=== PATIENT | female | born 1970 | race Caucasian/White ===

== ENCOUNTER 2017-07-24 12:54 | Emergency (ER) | payer MEDICAID ==
[~2017-07-24 12:54] MED LIST: FLUO40CA9 PO; LORA-445 PO
== END 2017-07-24 14:51 | disposition left against medical advice (07) ==
LOC: ED 14:15
DX: M79.89 Other specified soft tissue disorders (principal); Z53.21 Procedure and treatment not carried out due to patient leaving prior to being seen by health care provider

== ENCOUNTER 2018-04-07 13:46 | Emergency (ER) | payer MEDICAID ==
[~2018-04-07] VITALS: Ht 157.5 cm; Wt 78.1 kg
[2018-04-07 13:58] VITALS: BP 166/106
[2018-04-07] MEDS ORDERED: SODIUM CHLORIDE FLUSH 10ML SYR IVF ONE (14:30)
[2018-04-07] MEDS ORDERED: ASPIRIN 81 MG TABLET CHEW PO ONE (14:30)
[2018-04-07 14:48] LABS: BASOPHILS # (AUTO) 0.03 x10^3/uL (0-0.1); BASOPHILS % (AUTO) 0 % (0-1); EOSINOPHILS % (AUTO) 0 % (1-7); LYMPHOCYTES # (AUTO) 1.54 x10^3/uL (1-3.4); LYMPHOCYTES % (AUTO) 11 % (22-44); MD NO; MEAN CORPUSCULAR HEMOGLOBIN 32.6 pg (27.0-34.8); MEAN CORPUSCULAR HGB CONC 32.8 g/dL (32.4-35.8); MEAN CORPUSCULAR VOLUME 99.4 fL (80-100); MONOCYTES # (AUTO) 0.47 x10^3/uL (0.2-0.8); MONOCYTES % (AUTO) 4 % (2-9); NEUTROPHILS % (AUTO) 85 % (42-75); PLATELET COUNT 250 x10^3/uL (130-400); RED BLOOD COUNT 5.05 x10^6/uL (3.82-5.3)
[2018-04-07 14:56] LABS: ALBUMIN 4.1 g/dL (3.4-5.0); ANION GAP 8 mmol/L (5-15); CALCIUM 9.7 mg/dL (8.5-10.1); CHLORIDE 98 mmol/L (98-107); CREATININE 0.93 mg/dL (0.55-1.02)
[2018-04-07 15:00] LABS: TROPONIN I < 0.015 ng/mL (0.000-0.045)
[2018-04-07] MEDS ORDERED: ASPIRIN 81 MG TABLET CHEW ONE (15:21)
== END 2018-04-07 16:09 | disposition home or self-care (01) ==
LOC: ED 15:55
DX: M94.0 Chondrocostal junction syndrome [Tietze] (principal); J20.9 Acute bronchitis, unspecified
CPT/HCPCS: 36415; 71045; 80048; 82040; 83880; 84484; 85025; 93005; 99285

== ENCOUNTER 2018-06-16 07:48 | Inpatient (IN) | payer MEDICAID ==
[~2018-06-16] VITALS: Ht 157.5 cm; Wt 74.9 kg
[2018-06-16] MEDS ORDERED: CLON0.5T11 PO ×2 (08:11→14:38)
[2018-06-16] MEDS ORDERED: GABAPENTIN (08:12)
[2018-06-16] MEDS ORDERED: PANTOPRAZOLE 80 MG in SODIUM CHLORIDE 0.9% 50 ML IVPB ONE (08:30)
[2018-06-16] MEDS ORDERED: OCTREOTIDE 100MCG/ML, 1ML (0.1MG/ML) IV ONE (08:30)
[2018-06-16] MEDS ORDERED: LISINOPRIL (08:40)
[2018-06-16 08:41] LABS: BASOPHILS # (AUTO) 0.05 x10^3/uL (0-0.1); BASOPHILS % (AUTO) 1 % (0-1); EOSINOPHILS # (AUTO) 0.01 x10^3/uL (0-0.4); EOSINOPHILS % (AUTO) 0 % (1-7); LYMPHOCYTES # (AUTO) 1.56 x10^3/uL (1-3.4); LYMPHOCYTES % (AUTO) 14 % (22-44); MD NO; MEAN CORPUSCULAR HEMOGLOBIN 32.9 pg (27.0-34.8); MEAN CORPUSCULAR HGB CONC 33.3 g/dL (32.4-35.8); MEAN CORPUSCULAR VOLUME 98.9 fL (80-100); MEAN PLATELET VOLUME 6.8 fL (7.4-10.4); MONOCYTES # (AUTO) 0.27 x10^3/uL (0.2-0.8); MONOCYTES % (AUTO) 3 % (2-9); NEUTROPHILS # (AUTO) 8.92 x10^3/uL (1.8-6.8); NEUTROPHILS % (AUTO) 83 % (42-75); PLATELET COUNT 434 x10^3/uL (130-400); RED BLOOD COUNT 4.75 x10^6/uL (3.82-5.3); RED CELL DISTRIBUTION WIDTH 13.2 % (9.6-15.2)
--- NOTE | 2018-06-16 08:44 | NUR ---
PT C/O BLOODY VOMITUS X1 THIS AM. STATES SHE STARTED DRINKING ETOH RECENTLY AFTER ABSTAINING FOR 3 MONTHS. PT STATES SHE HAS NEVER HAD UPPER GI BLEEDING BEFORE, AND DOES NOT NOTE ANY DARK STOOLS. IV ACCESS OBTAINED, VSS AT THIS TIME.
[2018-06-16 08:53] LABS: CHLORIDE 95 mmol/L (98-107)
[2018-06-16 08:54] LABS: ALANINE AMINOTRANSFERASE 100 U/L (12-78); ALBUMIN 4.4 g/dL (3.4-5.0); ANION GAP 16 mmol/L (5-15); CALCIUM 8.2 mg/dL (8.5-10.1); CREATININE 1.19 mg/dL (0.55-1.02)
[2018-06-16 08:55] LABS: ALKALINE PHOSPHATASE 96 U/L (45-117); BILIRUBIN,TOTAL 0.6 mg/dL (0.2-1.0); INTERNATIONAL NORMALIZED RATIO 1.1 (0.93-1.1); PROTHROMBIN TIME 11.6 Seconds (9.6-11.5); TOTAL PROTEIN 8.4 g/dL (6.4-8.2)
[2018-06-16] MEDS ORDERED: PANTOPRAZOLE 80 MG in SODIUM CHLORIDE 0.9% 100 ML IV SCH ×2 (09:00→11:30)
[2018-06-16] MEDS ORDERED: OCTREOTIDE 500 MCG in SODIUM CHLORIDE 0.9% 249 ML IV PRN (09:00)
--- NOTE | 2018-06-16 09:34 | NUR ---
paged dr hess for dr bolton
--- NOTE | 2018-06-16 09:42 | NUR ---
IV MEDS ARE INFUSING, PT IS RESTING ON GURNEY, CALM AND COOPERATIVE, CALL LIGHT IS WITHIN REACH.
--- NOTE | 2018-06-16 10:03 | NUR ---
404-1 AFTER EGD IN ED.
--- NOTE | 2018-06-16 10:25 | NUR ---
ADMITTING PROVIDER IS WITH PT. WILL COMPLETE EKG PRIOR TO EGD. CALLED REPORT TO MELO DENNIS FOR ROOM 404-1.
--- NOTE | 2018-06-16 10:27 | NUR ---
KAUSHIK PUENTES SPOKE WITH PT ABOUT EGD PROCEDURE DID GI MD.
[2018-06-16] MEDS ORDERED: KETAMINE 100 MG/ML, 5ML IV ONE (10:30)
[2018-06-16] MEDS ORDERED: PROPOFOL 10 MG/ML, 20ML IVPush ONE (10:30)
[2018-06-16] MEDS ORDERED: OCTREOTIDE 100MCG/ML, 1ML (0.1MG/ML) ONE (10:45)
[2018-06-16] MEDS ORDERED: SODIUM CHLORIDE 0.9% 1,000ML IVBOLUS ONE (11:00)
--- NOTE | 2018-06-16 11:04 | NUR ---
PT MOVED TO TRAUMA 2 FOR EGD. ALL BELONGINGS WITH PT. IV NS AT BOLUS RATE PER DR. VASQUEZ. REPORT TO FEDERICO DENNIS.
[2018-06-16] MEDS ORDERED: PROPOFOL 10 MG/ML, 20ML ONE (11:15)
[2018-06-16] MEDS ORDERED: KETAMINE 50 MG/ML, 10ML ONE (11:16)
[2018-06-16] MEDS ORDERED: KETAMINE 10 MG/ML, 20ML ONE (11:19)
[2018-06-16] MEDS ORDERED: ACETAMINOPHEN 325 MG TABLET PO PRN (11:30)
[2018-06-16] MEDS ORDERED: PHARMACY MAY ADJ FOR RENAL FX MC PRN (11:30)
[2018-06-16] MEDS ORDERED: LORazepam 2 MG/ML, 1ML IV PRN ×2 (11:30)
[2018-06-16] MEDS ORDERED: ONDANSETRON 2MG/ML, 2ML IVPush PRN (11:30)
[2018-06-16] MEDS ORDERED: DOCUSATE 100 MG CAPSULE PO PRN (11:30)
[2018-06-16 13:17] VITALS: BP 124/82
[2018-06-16] MEDS: LORazepam 2 MG/ML, 1ML IV PRN ×4 (13:32→23:15)
[2018-06-16 13:50] VITALS: BP 124/82
[2018-06-16] MEDS ORDERED: DOXE10CA PO (14:38)
[2018-06-16] MEDS ORDERED: NALT50TA PO (14:38)
[2018-06-16] MEDS ORDERED: TRAM50TA2 PO (14:38)
[2018-06-16] MEDS ORDERED: FLUT1AER INH (14:38)
[2018-06-16] MEDS ORDERED: GABA600T2 PO (14:38)
[2018-06-16] MEDS: SODIUM CHLORIDE 0.9% 1,000 ML IV SCH ×2 (16:24→18:25)
[2018-06-16] MEDS: SUCRALFATE 1 GM/10 ML UDC PO SCH ×2 (16:45→20:35)
[2018-06-16 19:10] VITALS: BP 118/78
[2018-06-16] MEDS: MAGNESIUM SULFATE 1 GM, MVI ADULT 10 ML, THIAMINE 200 MG, FOLIC ACID 1 MG in SODIUM CHL... IV SCH (20:35)
[2018-06-16] MEDS: OMEPRAZOLE 20 MG CAPSULE.DR PO SCH (20:35)
[2018-06-17 01:30] VITALS: BP 122/84
[2018-06-17] MEDS: LORazepam 2 MG/ML, 1ML IV PRN ×2 (03:05→11:39)
[2018-06-17] MEDS: OMEPRAZOLE 20 MG CAPSULE.DR PO SCH ×2 (05:26→20:12)
[2018-06-17 05:59] LABS: BASOPHILS # (AUTO) 0.03 x10^3/uL (0-0.1); BASOPHILS % (AUTO) 1 % (0-1); EOSINOPHILS # (AUTO) 0.03 x10^3/uL (0-0.4); EOSINOPHILS % (AUTO) 1 % (1-7); LYMPHOCYTES % (AUTO) 32 % (22-44); MD NO; MEAN CORPUSCULAR HEMOGLOBIN 33.4 pg (27.0-34.8); MEAN CORPUSCULAR HGB CONC 33.7 g/dL (32.4-35.8); MEAN CORPUSCULAR VOLUME 99.1 fL (80-100); MEAN PLATELET VOLUME 7.1 fL (7.4-10.4); MONOCYTES # (AUTO) 0.47 x10^3/uL (0.2-0.8); MONOCYTES % (AUTO) 7 % (2-9); NEUTROPHILS # (AUTO) 4.03 x10^3/uL (1.8-6.8); NEUTROPHILS % (AUTO) 60 % (42-75); PLATELET COUNT 269 x10^3/uL (130-400); RED BLOOD COUNT 3.96 x10^6/uL (3.82-5.3); RED CELL DISTRIBUTION WIDTH 13.2 % (9.6-15.2)
[2018-06-17] MEDS: SODIUM CHLORIDE 0.9% 1,000 ML IV SCH ×2 (06:00→14:54)
[2018-06-17 06:12] LABS: CHLORIDE 100 mmol/L (98-107)
[2018-06-17 06:28] LABS: ALANINE AMINOTRANSFERASE 65 U/L (12-78); ALBUMIN 3.5 g/dL (3.4-5.0); ALKALINE PHOSPHATASE 77 U/L (45-117); ANION GAP 9 mmol/L (5-15); CREATININE 0.78 mg/dL (0.55-1.02); TOTAL PROTEIN 6.7 g/dL (6.4-8.2)
[2018-06-17 07:23] VITALS: BP 126/79
[2018-06-17] MEDS: FLUOXETINE HCL 20 MG CAPSULE PO SCH (09:20)
[2018-06-17] MEDS: SUCRALFATE 1 GM/10 ML UDC PO SCH ×4 (09:20→20:16)
[2018-06-17] MEDS ORDERED: OMEP-110 PO (11:19)
[2018-06-17] MEDS ORDERED: SUCR1ORA5 PO (11:19)
[2018-06-17] MEDS ORDERED: FOLI-17 PO (11:19)
[2018-06-17] MEDS ORDERED: THIA100T67 PO (11:19)
[2018-06-17] MEDS ORDERED: ACET325T14 PO (11:19)
[2018-06-17] MEDS: CHLORDIAZEPOXIDE 10 MG CAPSULE PO SCH ×3 (12:16→20:12)
[2018-06-17] MEDS: MAGNESIUM SULFATE 1 GM, MVI ADULT 10 ML, THIAMINE 200 MG, FOLIC ACID 1 MG in SODIUM CHL... IV SCH (12:17)
[2018-06-17 14:05] VITALS: BP 122/71
[2018-06-17] MEDS ORDERED: LORazepam 1MG TABLET PO PRN ×3 (16:00)
[2018-06-17] MEDS ORDERED: LORazepam 0.5MG TABLET PO PRN (16:00)
[2018-06-17] MEDS ORDERED: MVI ADULT IV SCH (17:00)
[2018-06-17] MEDS ORDERED: MAGNESIUM SULFATE IV SCH (17:00)
[2018-06-17] MEDS ORDERED: FOLIC ACID IV SCH (17:00)
[2018-06-17] MEDS ORDERED: [UNRECOGNIZED DRUG - OTHER] IV SCH (17:00)
[2018-06-17] MEDS ORDERED: THIAMINE IV SCH (17:00)
[2018-06-17 19:04] VITALS: BP 135/85
[2018-06-18 01:20] VITALS: BP 143/87
[2018-06-18] MEDS: OMEPRAZOLE 20 MG CAPSULE.DR PO SCH (05:23)
[2018-06-18] MEDS: CHLORDIAZEPOXIDE 10 MG CAPSULE PO SCH (05:24)
[2018-06-18] MEDS ORDERED: MAGNESIUM SULFATE IV SCH (07:00)
[2018-06-18] MEDS ORDERED: MVI ADULT IV SCH (07:00)
[2018-06-18] MEDS ORDERED: THIAMINE IV SCH (07:00)
[2018-06-18] MEDS ORDERED: FOLIC ACID IV SCH (07:00)
[2018-06-18] MEDS ORDERED: [UNRECOGNIZED DRUG - OTHER] IV SCH (07:00)
[2018-06-18] MEDS: FLUOXETINE HCL 20 MG CAPSULE PO SCH (07:32)
[2018-06-18] MEDS: SUCRALFATE 1 GM/10 ML UDC PO SCH (07:32)
[2018-06-18 08:17] VITALS: BP 139/83
[2018-06-18] MEDS ORDERED: SODIUM CHLORIDE 0.9% 1,000 ML IV SCH (11:03)
== END 2018-06-18 11:45 | disposition home or self-care (01) | DRG 381 ==
LOC: ED 08:43 → EDIP 09:39 → 4WST 13:15 → DCLOUNGE 06-18 11:20
PROVIDERS: ADMIT Hospitalist; ATTEND Hospitalist
PROC: 0DB68ZX Excision of Stomach, Via Natural or Artificial Opening Endoscopic, Diagnostic (ICD-10-PCS; principal; 2018-06-16 11:15)
DX: K22.11 Ulcer of esophagus with bleeding (principal); E87.1 Hypo-osmolality and hyponatremia; E87.2 Acidosis; D72.829 Elevated white blood cell count, unspecified; E66.9 Obesity, unspecified; F10.20 Alcohol dependence, uncomplicated; F32.9 Major depressive disorder, single episode, unspecified; F41.9 Anxiety disorder, unspecified; G89.29 Other chronic pain; I10 Essential (primary) hypertension; J45.909 Unspecified asthma, uncomplicated; K21.9 Gastro-esophageal reflux disease without esophagitis; K29.70 Gastritis, unspecified, without bleeding; K29.80 Duodenitis without bleeding; K70.10 Alcoholic hepatitis without ascites; Z68.30 Body mass index [BMI] 30.0-30.9, adult
CPT/HCPCS: 36415; 80053; 83690; 85014; 85018; 85025; 85610; 85730; 86850; 86900; 88305; 93005; 96374; 99285; G0378; J2354; J2405; J3411; J3475; C9113; J2060; J7030; J7050

== ENCOUNTER 2018-08-26 23:03 | Emergency (ER) | payer MEDICAID ==
[~2018-08-26] VITALS: Ht 157.5 cm; Wt 66.6 kg
[~2018-08-26 23:03] MED LIST changes: +ACET325T14 PO; +CLON0.5T11 PO; +DOXE10CA PO; +FLUT1AER INH; +FOLI-17 PO; +GABA600T7 PO; +GABAPENTIN; +LISINOPRIL; +NALT50TA PO; +OMEP-110 PO; +SUCR1ORA5 PO; +THIA100T67 PO; +TRAM50TA2 PO
[2018-08-26] MEDS ORDERED: FAMOTIDINE 20 MG/2 ML IVP ONE (23:30)
[2018-08-26] MEDS ORDERED: ONDANSETRON 2MG/ML, 2ML IVPush ONE (23:30)
[2018-08-26 23:56] LABS: BASOPHILS # (AUTO) 0.02 x10^3/uL (0-0.1); BASOPHILS % (AUTO) 0 % (0-1); EOSINOPHILS # (AUTO) 0.01 x10^3/uL (0-0.4); EOSINOPHILS % (AUTO) 0 % (1-7); LYMPHOCYTES # (AUTO) 1.03 x10^3/uL (1-3.4); LYMPHOCYTES % (AUTO) 18 % (22-44); MD NO; MEAN CORPUSCULAR HEMOGLOBIN 32.1 pg (27.0-34.8); MEAN CORPUSCULAR VOLUME 94.4 fL (80-100); MEAN PLATELET VOLUME 6.6 fL (7.4-10.4); MONOCYTES # (AUTO) 0.52 x10^3/uL (0.2-0.8); MONOCYTES % (AUTO) 9 % (2-9); NEUTROPHILS # (AUTO) 4.06 x10^3/uL (1.8-6.8); NEUTROPHILS % (AUTO) 72 % (42-75); PLATELET COUNT 270 x10^3/uL (130-400); RED BLOOD COUNT 4.65 x10^6/uL (3.82-5.3); RED CELL DISTRIBUTION WIDTH 15.4 % (9.6-15.2)
[2018-08-26] MEDS ORDERED: ONDANSETRON 2MG/ML, 2ML ONE (23:59)
[2018-08-26] MEDS ORDERED: FAMOTIDINE 20 MG/2 ML ONE (23:59)
[2018-08-27 00:07] LABS: ALANINE AMINOTRANSFERASE 80 U/L (12-78); ALBUMIN 4.6 g/dL (3.4-5.0); ANION GAP 14 mmol/L (5-15); CALCIUM 9.7 mg/dL (8.5-10.1); CHLORIDE 99 mmol/L (98-107); CREATININE 0.78 mg/dL (0.55-1.02)
[2018-08-27 00:09] LABS: ALKALINE PHOSPHATASE 72 U/L (45-117); BILIRUBIN,TOTAL 1.5 mg/dL (0.2-1.0)
--- NOTE | 2018-08-27 00:09 | NUR ---
PT HERE FOR DETOX SYMPTOMS WITH GAGGING AND UNABLE TO KEEP FOOD DOWN. PT IS HAS A TREMOR. VSS. PIV PLACED AND PT MEDICATED. PT TO CT.
[2018-08-27] MEDS ORDERED: LORazepam 2 MG/ML, 1ML IVPush ONE (00:30)
[2018-08-27] MEDS ORDERED: LORazepam 2 MG/ML, 1ML ONE (00:34)
--- NOTE | 2018-08-27 00:38 | NUR ---
MARC RN: PT SHAKING. PT REPORTS ANXIETY. PT GIVEN ATIVAN PER DR VALLADARES. VS STABLE AT THIS TIME. NO ACUTE DISTRESS NOTED. WILL CONTINUE TO MONITOR.
--- NOTE | 2018-08-27 00:50 | NUR ---
REPORT GIVEN TO JEANNIE BLAS
--- NOTE | 2018-08-27 01:31 | NUR ---
Patient given discharge instructions and they have confirmed that they understand the instructions. Patient ambulatory with steady gait.
[2018-08-27 01:32] VITALS: BP 155/94
== END 2018-08-27 01:33 | disposition home or self-care (01) ==
LOC: ED 08-27 00:27
DX: F10.239 Alcohol dependence with withdrawal, unspecified (principal); R11.2 Nausea with vomiting, unspecified; F41.9 Anxiety disorder, unspecified; Z72.9 Problem related to lifestyle, unspecified; I10 Essential (primary) hypertension
CPT/HCPCS: 36415; 70450; 80053; 80307; 83690; 85025; 96374; 96375; 99284; J2060; J2405; J3490

== ENCOUNTER 2020-10-10 08:17 | Inpatient (IN) | payer MEDICAID ==
[~2020-10-10] VITALS: Ht 157.5 cm; Wt 85.9 kg
[~2020-10-10 08:17] MED LIST changes: +CLON-364 PO; -CLON0.5T11 PO; -FOLI-17 PO; +FOLI1TAB32 PO
[2020-10-10] MEDS ORDERED: LORazepam 2 MG/ML, 1ML ONE ×2 (08:52→09:05)
[2020-10-10] MEDS: LORazepam 2 MG/ML, 1ML IVPush PRN ×2 (08:54→09:07)
[2020-10-10] MEDS ORDERED: SODIUM CHLORIDE FLUSH 10ML SYR IVF ONE (09:00)
--- NOTE | 2020-10-10 09:10 | NUR ---
Pt with a hx of ETOH and withdrawls. Last drink yesterday with intention to stop drinking. Pt presents shaking and anxious. Pt also c/o right side abd pain that started at her "overy and has worked it's way up. I'm worried it's my liver." Pain comes and goes and started about 1 month ago. Pt connected to all monitors. DHAVAL Desir and Law to bedside for evals.
[2020-10-10 09:15] LABS: INTERNATIONAL NORMALIZED RATIO 1.25 (0.93-1.1); PROTHROMBIN TIME 13.3 Seconds (9.6-11.5)
[2020-10-10 09:16] LABS: BASOPHILS % (AUTO) 0 % (0-1); EOSINOPHILS % (AUTO) 0 % (1-7); LYMPHOCYTES % (AUTO) 15 % (22-44); MEAN CORPUSCULAR HEMOGLOBIN 34.5 pg (27.0-34.8); MEAN CORPUSCULAR HGB CONC 33.1 g/dL (32.4-35.8); MEAN PLATELET VOLUME 7.4 fL (7.4-10.4); MONOCYTES % (AUTO) 8 % (2-9); NEUTROPHILS % (AUTO) 76 % (42-75); PLATELET COUNT 222 x10^3/uL (130-400); RED BLOOD COUNT 3.93 x10^6/uL (3.82-5.3); RED CELL DISTRIBUTION WIDTH 15.3 % (9.6-15.2)
[2020-10-10 09:17] LABS: ALBUMIN 3.5 g/dL (3.4-5.0); ANION GAP 9 mmol/L (5-15); CALCIUM 8.5 mg/dL (8.5-10.1); CHLORIDE 100 mmol/L (98-107)
[2020-10-10 09:22] LABS: MD NO
[2020-10-10 09:23] LABS: ALANINE AMINOTRANSFERASE 93 U/L (12-78); ALKALINE PHOSPHATASE 224 U/L (45-117); BILIRUBIN,TOTAL 2.8 mg/dL (0.2-1.0); CREATININE 0.71 mg/dL (0.55-1.02); TOTAL PROTEIN 8.5 g/dL (6.4-8.2)
[2020-10-10] MEDS ORDERED: PANTOPRAZOLE 40 MG IV ONE (09:30)
[2020-10-10] MEDS ORDERED: PANTOPRAZOLE 40 MG IV IVPush ONE (09:30)
[2020-10-10] MEDS ORDERED: SODIUM CHLORIDE 0.9% 1,000ML IVBOLUS ONE (09:30)
--- NOTE | 2020-10-10 10:16 | NUR ---
BREAK RN. U/S COMPLETED, AWAITING RESULTS. PT REMAINS ON MONITORS, VSS. CALL LIGHT IN REACH, CONT TO MONITOR.
--- NOTE | 2020-10-10 10:30 | NUR ---
Pt up to bathroom for UA.
--- NOTE | 2020-10-10 10:36 | NUR ---
Pt states she unable to urinate at this time.
[2020-10-10] MEDS ORDERED: LISI-170 PO (10:42)
[2020-10-10] MEDS ORDERED: NALT50TA PO (10:44)
[2020-10-10] MEDS ORDERED: FLUO10CA13 PO (10:44)
--- NOTE | 2020-10-10 10:45 | NUR ---
Med rec done to best of pt's ability.
[2020-10-10] MEDS ORDERED: CHLORDIAZEPOXIDE 10 MG CAPSULE PO PRN (11:00)
[2020-10-10] MEDS ORDERED: CHLORDIAZEPOXIDE 10 MG CAPSULE ONE (11:03)
[2020-10-10] MEDS ORDERED: CHOLECALCIFEROL 5,000u TAB PO SCH (11:30)
[2020-10-10] MEDS ORDERED: ONDANSETRON ODT 4 MG PO PRN (11:30)
[2020-10-10] MEDS ORDERED: BACLOFEN 10 MG TABLET PO PRN (11:30)
[2020-10-10] MEDS ORDERED: LORazepam 2 MG/ML, 1ML IVPush PRN (11:30)
[2020-10-10] MEDS ORDERED: GUAIFENESIN/DM 200-20MG, 10ML UDC PO PRN (11:30)
[2020-10-10] MEDS ORDERED: LACTATED RINGERS 1,000 ML IV ONE (11:30)
[2020-10-10] MEDS ORDERED: HYDROmorphone 2 MG/ML, 1ML IVPush PRN (11:30)
[2020-10-10] MEDS ORDERED: ONDANSETRON 2MG/ML, 2ML IVPush PRN (11:30)
[2020-10-10] MEDS: GABAPENTIN 300 MG CAPSULE PO SCH ×2 (13:48→20:27)
[2020-10-10] MEDS: ZINC SULFATE 220 MG CAPSULE PO SCH (13:49)
[2020-10-10] MEDS: MULTIVITS,STRESS FORMULA 1 TABLET PO SCH (13:49)
[2020-10-10 14:34] VITALS: BP 154/99
[2020-10-10] MEDS ORDERED: CYANOCOBALAMIN 1,000 MCG/ML, 1ML IM ONE (16:00)
[2020-10-10] MEDS: HYDROcodone/APAP 5/325 TABLET PO PRN ×2 (16:00→20:27)
[2020-10-10 16:53] LABS: % IRON SATURATION 85 % (20-55); IRON LEVEL 158 mcg/dL (50-170); TOTAL IRON BINDING CAPACITY 186 mcg/dL (250-450)
[2020-10-10] MEDS ORDERED: ASCORBIC ACID 500 MG TABLET PO SCH (17:00)
[2020-10-10] MEDS: ASCORBIC ACID 500 MG TABLET PO SCH (17:32)
[2020-10-10] MEDS: DIAZEPAM 10 MG TABLET PO SCH ×2 (17:32→22:09)
[2020-10-10] MEDS: ENOXAPARIN 30 MG/0.3 ML SQ SCH (17:37)
[2020-10-10 20:00] VITALS: BP 127/85
[2020-10-10] MEDS: MELATONIN 5 MG TABLET PO SCH (20:26)
[2020-10-10 22:47] LABS: HCG UR SG 1.039 (1.003-1.030)
[2020-10-10 22:52] LABS: AMPHETAMINE SCREEN, URINE Negative (Negative); BARBITURATE SCREEN, URINE Negative (Negative); BENZODIAZEPINE SCREEN, URINE Positive (Negative); CANNABINOID SCREEN, URINE Negative (Negative); COCAINE SCREEN, URINE Negative (Negative); METHADONE SCREEN, URINE Negative (Negative); OPIATE SCREEN, URINE Positive (Negative)
[2020-10-10 22:53] LABS: MICROSCOPIC INDICATED
[2020-10-11 01:33] VITALS: BP 119/78
[2020-10-11] MEDS: DIAZEPAM 10 MG TABLET PO SCH ×4 (04:04→22:33)
[2020-10-11 07:11] VITALS: BP 127/81
[2020-10-11] MEDS ORDERED: CHOLECALCIFEROL 5,000u TAB PO SCH (09:00)
[2020-10-11] MEDS: MULTIVITS,STRESS FORMULA 1 TABLET PO SCH ×2 (09:00→10:10)
[2020-10-11] MEDS ORDERED: ZINC SULFATE 220 MG CAPSULE PO SCH (09:00)
[2020-10-11] MEDS: ENOXAPARIN 30 MG/0.3 ML SQ SCH ×2 (09:00→20:55)
[2020-10-11] MEDS: SENNA/DOCUSATE TABLET PO SCH (09:00)
[2020-10-11 09:53] LABS: BASOPHILS % (AUTO) 1 % (0-1); EOSINOPHILS % (AUTO) 1 % (1-7); LYMPHOCYTES % (AUTO) 29 % (22-44); MEAN CORPUSCULAR HEMOGLOBIN 34.6 pg (27.0-34.8); MEAN CORPUSCULAR HGB CONC 33.3 g/dL (32.4-35.8); MEAN PLATELET VOLUME 7.4 fL (7.4-10.4); MONOCYTES % (AUTO) 9 % (2-9); NEUTROPHILS % (AUTO) 61 % (42-75); PLATELET COUNT 184 x10^3/uL (130-400); RED BLOOD COUNT 3.65 x10^6/uL (3.82-5.3); RED CELL DISTRIBUTION WIDTH 15.1 % (9.6-15.2)
[2020-10-11 09:54] LABS: MD NO
[2020-10-11 10:01] LABS: ANION GAP 6 mmol/L (5-15); CALCIUM 8.4 mg/dL (8.5-10.1); CHLORIDE 102 mmol/L (98-107)
[2020-10-11 10:03] LABS: ALANINE AMINOTRANSFERASE 77 U/L (12-78); ALKALINE PHOSPHATASE 172 U/L (45-117); BILIRUBIN,TOTAL 2.9 mg/dL (0.2-1.0); TOTAL PROTEIN 7.2 g/dL (6.4-8.2)
[2020-10-11] MEDS: ASCORBIC ACID 500 MG TABLET PO SCH ×2 (10:10→17:31)
[2020-10-11] MEDS: ZINC SULFATE 220 MG CAPSULE PO SCH (10:10)
[2020-10-11] MEDS: GABAPENTIN 300 MG CAPSULE PO SCH ×2 (10:10→20:50)
[2020-10-11] MEDS: CHOLECALCIFEROL 5,000u TAB PO SCH (10:11)
[2020-10-11 13:10] VITALS: BP 120/80
[2020-10-11] MEDS ORDERED: GADOTERATE 10 MMOL/20 ML VIAL ONE (18:23)
[2020-10-11 19:04] VITALS: BP 134/84
[2020-10-11] MEDS: HYDROcodone/APAP 5/325 TABLET PO PRN (19:10)
[2020-10-11] MEDS: MELATONIN 5 MG TABLET PO SCH (20:50)
[2020-10-12 01:58] VITALS: BP 98/62
[2020-10-12] MEDS: DIAZEPAM 10 MG TABLET PO SCH (03:57)
[2020-10-12] MEDS ORDERED: CHLORDIAZEPOXIDE 10 MG CAPSULE PO PRN (07:00)
[2020-10-12] MEDS ORDERED: LORazepam 2 MG/ML, 1ML IV PRN ×6 (07:00)
[2020-10-12] MEDS ORDERED: CHLORDIAZEPOXIDE 25 MG CAPSULE PO PRN ×3 (07:00)
[2020-10-12] MEDS ORDERED: LORazepam 0.5MG TABLET PO PRN (07:00)
[2020-10-12] MEDS ORDERED: LORazepam 1MG TABLET PO PRN ×4 (07:00)
[2020-10-12 07:10] VITALS: BP 122/79
[2020-10-12] MEDS: MULTIVITS,STRESS FORMULA 1 TABLET PO SCH ×2 (09:00→11:07)
[2020-10-12] MEDS: ENOXAPARIN 30 MG/0.3 ML SQ SCH (09:00)
[2020-10-12] MEDS: ZINC SULFATE 220 MG CAPSULE PO SCH (11:06)
[2020-10-12] MEDS: CHOLECALCIFEROL 5,000u TAB PO SCH (11:08)
[2020-10-12] MEDS: SENNA/DOCUSATE TABLET PO SCH (11:08)
[2020-10-12] MEDS: GABAPENTIN 300 MG CAPSULE PO SCH ×2 (11:08→20:34)
[2020-10-12] MEDS: ASCORBIC ACID 500 MG TABLET PO SCH ×2 (11:08→16:19)
[2020-10-12 12:33] VITALS: BP 122/84
[2020-10-12] MEDS: HYDROcodone/APAP 5/325 TABLET PO PRN ×2 (16:16→18:21)
[2020-10-12 19:02] VITALS: BP 125/82
[2020-10-12] MEDS: MELATONIN 5 MG TABLET PO SCH (20:34)
[2020-10-13 00:17] VITALS: BP 95/62
[2020-10-13 05:51] LABS: BASOPHILS % (AUTO) 1 % (0-1); EOSINOPHILS % (AUTO) 2 % (1-7); LYMPHOCYTES % (AUTO) 29 % (22-44); MD NO; MEAN CORPUSCULAR HEMOGLOBIN 35.4 pg (27.0-34.8); MEAN CORPUSCULAR HGB CONC 33.6 g/dL (32.4-35.8); MEAN PLATELET VOLUME 8.1 fL (7.4-10.4); MONOCYTES % (AUTO) 14 % (2-9); NEUTROPHILS % (AUTO) 55 % (42-75); PLATELET COUNT 143 x10^3/uL (130-400); RED BLOOD COUNT 3.24 x10^6/uL (3.82-5.3); RED CELL DISTRIBUTION WIDTH 15.2 % (9.6-15.2)
[2020-10-13 06:05] LABS: CHLORIDE 105 mmol/L (98-107)
[2020-10-13 06:11] LABS: ANION GAP 7 mmol/L (5-15); CALCIUM 8.2 mg/dL (8.5-10.1); CREATININE 0.48 mg/dL (0.55-1.02)
[2020-10-13 06:30] VITALS: BP 130/70
[2020-10-13] MEDS: ZINC SULFATE 220 MG CAPSULE PO SCH (07:51)
[2020-10-13] MEDS: CHOLECALCIFEROL 5,000u TAB PO SCH (07:51)
[2020-10-13] MEDS: GABAPENTIN 300 MG CAPSULE PO SCH (07:51)
[2020-10-13] MEDS: SENNA/DOCUSATE TABLET PO SCH (07:52)
[2020-10-13] MEDS: MULTIVITS,STRESS FORMULA 1 TABLET PO SCH ×2 (07:52)
[2020-10-13] MEDS: ASCORBIC ACID 500 MG TABLET PO SCH (07:52)
[2020-10-13] MEDS ORDERED: OXYcodone IR 5MG TABLET PO PRN (08:30)
[2020-10-13] MEDS ORDERED: GABA300C PO (08:35)
[2020-10-13] MEDS ORDERED: FAMOTIDINE 20 MG TABLET PO ONE (10:30)
[2020-10-13] MEDS ORDERED: OXYC5TAB98 PO (11:14)
[2020-10-13 12:42] VITALS: BP 110/76
[2020-10-13] MEDS ORDERED: DIAZEPAM 10 MG TABLET PO SCH (16:00)
[2020-10-14] MEDS ORDERED: DIAZEPAM 5 MG TABLET PO SCH (16:00)
== END 2020-10-13 16:20 | disposition home or self-care (01) | DRG 432 ==
LOC: ED 09:04 → EDIP 10:56 → 4WST 13:20 → DCLOUNGE 10-13 16:02
PROVIDERS: ADMIT Family Medicine; ATTEND Internal Medicine
DX: K70.9 Alcoholic liver disease, unspecified (principal); I81 Portal vein thrombosis; E87.1 Hypo-osmolality and hyponatremia; D68.4 Acquired coagulation factor deficiency; F10.239 Alcohol dependence with withdrawal, unspecified; E55.9 Vitamin D deficiency, unspecified; D75.89 Other specified diseases of blood and blood-forming organs; K76.0 Fatty (change of) liver, not elsewhere classified; K74.60 Unspecified cirrhosis of liver; K29.50 Unspecified chronic gastritis without bleeding; K29.20 Alcoholic gastritis without bleeding; G62.1 Alcoholic polyneuropathy; F41.9 Anxiety disorder, unspecified; F32.9 Major depressive disorder, single episode, unspecified; I10 Essential (primary) hypertension; J45.909 Unspecified asthma, uncomplicated; Z56.0 Unemployment, unspecified; Z91.19 Patient's noncompliance with other medical treatment and regimen
CPT/HCPCS: 36415; 96374; 99285; A9575; 74176; 74183; 76700; 80048; 80053; 80299; 80307; 80320; 81001; 81025; 82105; 82140; 82306; 82607; 82728; 82784; 83516; 83540; 83550; 83690; 83735; 84100; 84207; 84252; 84425; 84590; 84630; 84702; 84703; 85025; 85379; 85610; 86038; 86704; 86706; 86708; 86803; 87086; 87340; 93005; 93975; G0378; J1650; J2405; C9113; G0480; J2060; J3420; J7030; J7120

== ENCOUNTER 2020-11-30 12:37 | Emergency (ER) | payer MEDICAID ==
[~2020-11-30] VITALS: Ht 157.5 cm; Wt 72.1 kg
[~2020-11-30 12:37] MED LIST changes: +FLUO10CA13 PO; +GABA300C PO; +LISI-170 PO; +OXYC5TAB98 PO
--- NOTE | 2020-11-30 13:12 | NUR ---
PT AMBULATORY TO ROOM FROM [facility] STEADY GAIT.
--- NOTE | 2020-11-30 13:15 | NUR ---
PATIENT WALKED BACK FROM [facility] WITH CHIEF C/O HEAD INJURY. PATIENT REPORTS SHE HAD 7 BOTTLES OF WINE IN 4 DAYS, WAS ON A DRINKING BINGE. PATIENT REPORTS FALLING AT SOME POINT DURING THESE 4 DAYS, DOES NOT REMEMBER HOW OR WHEN SHE FELL, BUT THURSDAY NIGHT HER HEAD STARTED HURTING, PAIN HAS INCREASED OVER THE LAST SEVERAL DAYS. PAIN IS LOCATED ON THE BACK OF HER HEAD, BUMP ON BACK OF HEAD NOTED. PATIENT C/O MCCAIN, DENIES N/V/D SINCE THURSDAY. PAIN HAS RADIATED FROM BACK OF HEAD TO LEFT EYE AND JAW. PATIENT SEEN AT PCP OFFICE 2 DAYS AGO, CT ORDERED, BUT NOT SCHEDULED UNTIL 12/12. CONNECTED TO MONITOR, VSS, NADN, CALL LIGHT WITHIN REACH. ERPA AT BEDSIDE FOR EVALUATION.
[2020-11-30] MEDS ORDERED: SODIUM CHLORIDE FLUSH 10ML SYR IVF ONE (13:30)
[2020-11-30] MEDS ORDERED: DIPHENHYDRAMINE 50 MG/ML, 1ML IVPush ONE (13:30)
[2020-11-30] MEDS ORDERED: METOCLOPRAMIDE 5 MG/ML, 2ML IVPush ONE (13:30)
[2020-11-30] MEDS ORDERED: SODIUM CHLORIDE 0.9% 1,000ML IVBOLUS ONE (13:30)
[2020-11-30] MEDS ORDERED: METOCLOPRAMIDE 5 MG/ML, 2ML ONE (13:31)
[2020-11-30] MEDS ORDERED: DIPHENHYDRAMINE 50 MG/ML, 1ML ONE (13:31)
--- NOTE | 2020-11-30 13:59 | NUR ---
PT RESTING IN ROOM. NO ACUTE DISTRESS NOTED. VS STABLE. CALL LIGHT IN PLACE. WILL CONTINUE TO MONITOR WHILE PRIMARY RN IS ON BREAK.
--- NOTE | 2020-11-30 14:19 | NUR ---
PATIENT TO IMAGING.
--- NOTE | 2020-11-30 14:24 | NUR ---
Report given to JEANNIE Godinez
[2020-11-30 15:12] VITALS: BP 159/97
--- NOTE | 2020-11-30 15:18 | NUR ---
IV removed with tip intact. Patient given discharge instructions and they have confirmed that they understand the instructions. Patient ambulatory with steady gait. NAD, all questions answered appropriately, denies additional needs at this time. No personal belongings left in room after discharge.
== END 2020-11-30 15:19 | disposition home or self-care (01) ==
LOC: ED 13:31
DX: S00.03XA Contusion of scalp, initial encounter (principal); R51.9 Headache, unspecified; R41.3 Other amnesia; F10.129 Alcohol abuse with intoxication, unspecified; I10 Essential (primary) hypertension; W01.0XXA Fall on same level from slipping, tripping and stumbling without subsequent striking against object, initial encounter; Y93.89 Activity, other specified; Y92.009 Unspecified place in unspecified non-institutional (private) residence as the place of occurrence of the external cause; Y99.8 Other external cause status; Y90.0 Blood alcohol level of less than 20 mg/100 ml
CPT/HCPCS: 70450; 96361; 96374; 96375; 99284; J1200; J2765; J7030